=== PATIENT | male | born 1950 | race Caucasian/White ===

== ENCOUNTER 2019-01-26 15:44 | Emergency (ER) | payer MEDICARE, OTHER ==
[2019-01-26] MEDS ORDERED: Morphine 4 MG/ML VIAL ONE (15:54)
[2019-01-26] MEDS ORDERED: Ondansetron PF 4 MG/2 ML Vial ONE (15:54)
[2019-01-26 16:12] LABS: #Basophils 0.1 thou/uL (0.0-0.2); #Eosinphils 0.3 thou/uL (0.0-0.7); #Lymphocytes 1.2 thou/uL (1.20-3.40); #Monocytes 0.7 thou/uL (0.11-0.59); #Neutrophils 3.2 thou/uL (1.40-6.50); %Basophils 1.4 % (0.0-1.0); %Eosinophils 5.1 % (0.0-10.0); %Lymphocytes 22.3 % (21.0-51.0); %Neutrophils 58.2 % (42.0-75.0); Hemoglobin 13.8 g/dL (14.0-18.0); Mean Corpuscular HGB CONC 34.2 g/dL (32.0-36.0); Mean Corpuscular Hemoglobin 29.9 pg (27.0-31.0); Mean Corpuscular Volume 87.5 fL (78.0-98.0); Mean Platelet Volume 13.1 fL (7.4-10.4); Platelet Count 52 thou/uL (130-400); RBC Distribution Width 12.2 % (11.5-14.5); Red Blood Cell (RBC) Count 4.61 mill/uL (4.70-6.10); White Blood Cell (WBC) Count 5.4 thou/uL (4.8-10.8)
[2019-01-26 16:14] LABS: Anion Gap 16 mmol/L (10-20); BUN (Urea Nitrogen) 16 mg/dL (8.4-25.7); Calc. Creatinine Clearance 0 mL/min (70-130); Calcium 9.1 mg/dL (7.8-10.44); Carbon Dioxide 22 mmol/L (23-31); Chloride 105 mmol/L (98-107); Estimated GFR-MDRD Greater than 90; Glucose 93 mg/dL (80-115); Potassium 3.6 mmol/L (3.5-5.1); Sodium 139 mmol/L (136-145)
[2019-01-26 16:31] LABS: Platelet Morphology Comment PLT clumps seen-LOW
[2019-01-26 16:32] LABS: Large Platelets SLIGHT
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
[2019-01-26] MEDS ORDERED: Adacel (T-DAP) 0.5 ML SYRINGE ONE (16:40)
[2019-01-26] MEDS ORDERED: HYDROcodone/Acetaminophen 10/325 mg Tablet ONE (18:00)
[2019-01-26] MEDS ORDERED: Bacitracin 1 PK ONE (18:27)
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
== END 2019-01-26 19:00 | disposition home or self-care (01) ==
LOC: MADERS 15:44
DX: S71.131A Puncture wound without foreign body, right thigh, initial encounter (principal); E11.9 Type 2 diabetes mellitus without complications; I10 Essential (primary) hypertension; Z79.899 Other long term (current) drug therapy; Z79.82 Long term (current) use of aspirin; Z79.51 Long term (current) use of inhaled steroids; Z79.4 Long term (current) use of insulin; W34.00XA Accidental discharge from unspecified firearms or gun, initial encounter
CPT/HCPCS: 72170; 80048; 85025; 90471; 90715; 96374; 96375; 99292; J2270; J2405